=== PATIENT | female | born 1950 | race Caucasian/White ===

== ENCOUNTER 2021-12-11 00:19 | Day surgery (SDC) | payer MEDICARE, OTHER, SELFPAY ==
[2021-12-04 13:33] VITALS: BMI 24.7
--- NOTE | 2021-12-04 13:49 | PC.NURSE ---
Report to the Outpatient Waiting Room, entrance under the green pavilion located off [facility], at time __1000 on date ___12/11/21____. OR Time: ____1200____. - You and your visitor will be asked a series of questions to screen for COVID 19 for your protection. - A mask is required within the hospital. - NO visitors are allowed at this time. Patient visitors will be guided where to wait when not with patient. Preoperative COVID Testing Requirements: No COVID Test needed if: (proof is required; if not received patient will have Rapid Test prior to entry) - Patient has received COVID Vaccine at least 14 days prior to procedure date or - Patient has positive COVID test result within last 90 days of surgery date. COVID Test needed if above criteria is not met If not COVID vaccinated a COVID test must be conducted within 72 hours of surgery and patient is asked to isolate self from time of testing until procedure. You will go to the [employer] [facility] for your COVID testing. The [employer] [facility] is located at the corner of [address] from [facility]. You will only be called if COVID results are positive and your surgeon may reschedule your elective surgery date. Patients may have clear liquids (water, carbonated beverages, clear teas, apple juice) until 3 hours prior to surgery with a maximum of 20 ounces. (0900 AM) - No food from midnight until time of surgery - Infants may have breast milk until 4 hours before surgery, formula 6 hours prior to surgery. - Children will be allowed to drink immediately following surgery. If applicable, please bring a bottle or sippy cup to assist with drinking. Juice, water, soda, and popsicles are readily available. For infants on formula, please bring formula the day of surgery. Pacifiers are allowed. Take the following medications with a SIP of water the morning of surgery: __ADDERALL, BUPROPION, DULOXETINE___ Medications to discontinue per physician ___VITAMINS & SUPPLEMENTS Date to take last dose 12/07/21 Please no make-up, nail indonesian, hairspray, perfume, deodorant, or body powder the day of surgery. No jewelry (including any body piercings) or valuables the day of surgery, leave them at home. Please take a shower or bath the night before, or the morning of, surgery with an antibacterial soap. Wear comfortable, loose fitting clothing. Children are encouraged to wear pajamas. - Jewelry must be removed prior to entering the operating room. Rings and piercings that are not removed may be cut off. - The hospital will not accept responsibility for valuables. - Please leave all valuables, including medications, at home the day of surgery. If you are going home after surgery, a licensed class a regional drivers must drive you home. - NO public transportation without another adult. - We recommend that an adult stay with you for 24 hours following discharge. - We also recommend that you do not drive, make important decision, drink alcoholic beverages, or take any drugs that were not prescribed by your health care provider for at least 24 hours after your discharge time. For Pediatric surgeries, we recommend two adults accompany the child home (only one inside the building at this time). Follow any additional instructions given to you from your surgeon. DEBRA SHOWKEY AM OF SURGERY Telephone instructions given to ____PT and asked if any additional questions and then verbalized understanding. Patient advised to call surgeon office or pre surgery nurse liaison [phone] if any additional questions.
[2021-12-11] VITALS (8 sets, daily range): BP systolic 133–151; BP diastolic 80–99; PULSE 66–84; RESP 14–18; TEMP 36.2–36.8; O2SAT 93–100; BMI 25.6
--- NOTE | 2021-12-11 09:34 | WPDANESEPPF ---
Anes - Initial Pre Proc Eval Procedure: Operation Date: 12/11/21 12:00 Proposed Procedures p Robotic Assisted Recurrent Incisional Hernia Repair with Mesh - Monae Hartman MD Date/Time: 12/11/21 09:34 Surgeon: Monae Hartman MD Pre Op Diagnosis: recurrent incisional hernia Patient Data Age: 71 Gender: F Height: 1.68 m Weight: 69.54 kg Allergies Allergy/AdvReac Type Severity Reaction Status Date / Time codeine AdvReac Nausea and Verified 12/11/21 11:08 Vomiting Sulfa (Sulfonamide AdvReac Hives Verified 12/11/21 11:08 Antibiotics) Home Medications Medication Instructions Recorded Confirmed Type bupropion HCl 300 mg 24 hr tablet, 300 mg PO QAM 11/18/21 12/11/21 History extended release dextroamphetamine-amphetamine 10 10 mg PO BID 11/18/21 12/11/21 History mg tablet diclofenac sodium 75 mg 75 mg PO BID 11/18/21 12/11/21 History tablet,delayed release duloxetine 60 mg capsule,delayed 120 mg PO QAM 11/18/21 12/11/21 History release gabapentin 600 mg tablet 600 mg PO HS 11/18/21 12/11/21 History multivitamin 1 tablet PO DAILY 11/18/21 12/11/21 History docusate sodium [Colace] 100 mg PO BID #30 cap 12/11/21 Rx hydrocodone-acetaminophen 1 tablet PO Q6H PRN #30 tablet 12/11/21 Rx Patient hx anesthesia problems: none Family hx anesthesia problems: none Results Review: All pre-operative results and documents have been reviewed as part of the pre-operative evaluation. [facility] Past Medical History Medical History (Updated 12/10/21 @ 12:55 by Tera Cordova DO) ADD (attention deficit disorder) Anxiety Depression MVP (mitral valve prolapse) Neuropathy PONV (postoperative nausea and vomiting) Surgical History Surgical History (Updated 12/10/21 @ 12:55 by Tera Cordova DO) History of appendectomy Family History Family History Mother , 99.5 YEARS OLD Cerebrovascular accident Father , 82 YEARS OLD Heart attack Hypertension Depression Sibling Depression Social History Social History Smoking status: Never smoker Second hand tobacco smoke exposure: No Alcohol intake: current Drinks per week: 12 Alcohol use details: SOCIALLY Substance use: current Substance use type: marijuana Other substance usage details: [place] [employer] GUMMIE 10ML/GUMMIE - 30ML/WEEK Last use: 12/03/21 Living arrangements: with family Spiritual care concerns: No Anes - Eval Final PreProcedure Day of Procedure 12/11/21 09:34 Patient weight: normal Heart: regular rate and rhythm Lungs: clear to auscultation and normal air movement Airway: Mallampati scale class II Neurological: alert and oriented Last oral intake: >/= 8 hours ASA classification: II Emergent: no Anesthetic plan: proceed Anesthesia type and monitoring: general ETT Results Review: All pre-operative results and documents have been reviewed as part of the pre-operative evaluation. Informed Consent: The patient's anesthetic plan and its attendant risks and benefits were discussed with the patient/family/POA. Questions were solicited and answers provided to the satisfaction of the patient/family/POA.
--- NOTE | 2021-12-11 10:52 | WPDHPUPDATE1 ---
History and Physical Update Update Date/Time: 12/11/21 10:52 History and Physical has been reviewed, including an updated exam of the patient. There are NO changes in the patient's condition. Risks, benefits, and alternatives have been discussed and questions answered. Patient agrees to proceed with procedure.
[2021-12-11] MEDS: ACETAMINOPHEN 500 MG TABLET 1000 MG PO (11:18)
[2021-12-11] MEDS: KETOROLAC 15 MG/ML VIAL (*BKC) IV PUSH (11:34)
[2021-12-11] MEDS: LACTATED RINGERS 1,000 ML 30 ML IV CONT ×2 (11:39→14:48)
--- NOTE | 2021-12-11 12:01 | SUR.PREOP ---
PT REPORT GIVEN TO SANCHEZ KAHN R.N.
[2021-12-11] MEDS: ceFAZolin 2 GM/D5W 50 ML 2 GM/50 ML BAG IVPB (12:45)
--- NOTE | 2021-12-11 14:38 | W.PM.PROC2 ---
Procedure Note - Detailed Date of Procedure 12/11/21 Pre-op Diagnosis recurrent incisional hernia Post-op Diagnosis same Procedure Performed Robotic assisted repair recurrent incarcerated incisional hernia with mesh Surgeon Monae Hartman MD Anesthesia general Indications 71 y/o F c recurrent upper midline incisional hernia Findings multiple small nigerien cheese defects (6) in upper midline within 7 cm radius Description of Procedure The patient was taken the operating room placed in the supine position. After adequate induction of general anesthesia, the patient was prepped and draped in normal sterile fashion. A time-out was then done to verify the patient's identity as well as the procedure being performed. I began by making a 5 mm incision in the left upper quadrant. Through this, a Veress needle was placed into the peritoneal cavity and CO2 gas was insufflated. After adequate pneumoperitoneum was achieved, a 5 mm trocar was placed through this incision. I then placed the laparoscope through this trocar site and under direct visualization I placed a 8 mm port in the left mid abdomen as well as an additional 8 mm port in the left lower abdomen. I then moved the camera to the lower port and replaced the 5 mm port with a 12 mm airport. The robot was then docked to the 3 port sites. I then went to the robotic console. I began by identifying the hernias. Multiple upper midline hernias were noted. Upon reduction, there were 6 defects within a 7 cm radius. In the center of these was a previous ethibond stich from previous open repair. The largest defect was in this area and measured approximately 2 cm. The hernias were noted to contain a large amount of preperitoneal fat. Once reduced, I also reduced and dissected out the hernia sacs. I then closed the approximately midline defects with 0 strata fix suture. I then placed a 15 x [address] mesh into the abdominal cavity. The positional stitch was placed in the middle of the mesh and brought up centering the mesh over the defect. Once this was done, I used 2 0 V lock suture x 2 to circumferentially suture the mesh to the abdominal. Once the mesh was completely sutured in, I was happy with our tension-free repair. The mesh was noted to have good overlap of the defect. I then removed the positioning device. At this point, the robot was undocked and all ports were removed. I then closed the 12 mm port site with an 0 Vicryl [id number] suture at the fascial level. All port sites were then closed with 4 O Monocryl subcuticular suture. The patient tolerated the procedure well, is extubated in the operating room postoperative, OB transferred to the recovery room in stable condition. Implants 15 x [address] mesh Estimated Blood Loss 10 Drains No Packing No Pathology none sent Complications No immediate complications Condition stable Disposition PACU
--- NOTE | 2021-12-11 15:24 | SUR.PHASEI ---
PT AWAKE AND ALERT. TALKATIVE. STATES PAIN 2-3/10 AND TOLERABLE. DOES NOT WANT ANY PAIN MEDICINE AT THIS TIME
--- NOTE | 2021-12-11 15:26 | SUR.PHASEI ---
ICE PACK PLACED ON ABDOMEN
[2021-12-11] MEDS: ONDANSETRON INJ 4 MG/2 ML VIAL IV PUSH (16:29)
== END 2021-12-11 17:17 | disposition home or self-care (01) ==
PROVIDERS: PCP Internal Medicine; Visit Provider Surgery
PROC: (CPT 49657; principal; 2021-12-11 12:00)
DX: K43.0 Incisional hernia with obstruction, without gangrene (principal); F98.8 Other specified behavioral and emotional disorders with onset usually occurring in childhood and adolescence; I34.1 Nonrheumatic mitral (valve) prolapse; G62.9 Polyneuropathy, unspecified; F41.8 Other specified anxiety disorders; Z79.891 Long term (current) use of opiate analgesic; F12.90 Cannabis use, unspecified, uncomplicated
CPT/HCPCS: 49657; S2900; 36415; 86850; 86900; 86901; A9270; C1781; J0330; J0690; J1100; J1885; J2250; J2270; J2405; J2704; J3010; J7030; J7120